=== PATIENT | female | born 1970 | race Caucasian/White ===

== ENCOUNTER 2025-05-15 12:15 | Outpatient (AMB) | payer OTHER, SELFPAY ==
--- NOTE | 2025-05-15 12:32 | MHC.OFFVIS ---
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 Her feet and toes are constantly numb, tingly, and painful, especially at night. Pain is burning and tingling type, at times shooting type. 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 Despite taking Lyrica, she was still having same discomfort in her feet day and night. Also her right hand has started to bother her more. It was getting numb and achy. [facility] Medical History (Updated 05/15/25 @ 12:38 by Norma Rob MD) GERD (gastroesophageal reflux disease) HTN (hypertension) Carpal tunnel syndrome Carpal tunnel syndrome, bilateral upper limbs Restless leg syndrome Carpal tunnel syndrome of right wrist Small fiber neuropathy Peripheral neuropathy Review of Systems Const Details: Constitutional:?No fever, chills, fatigue, weight loss, or night sweats. HEENT:?No headache, vision changes, hearing loss, nasal congestion, sore throat. Neurological:? Complain of numbness Psychiatric:?No anxiety, depression, mood swings, sleep disturbance, or hallucinations. Endocrine:?No heat/cold intolerance, polydipsia, polyuria, or hair/skin changes. Hematologic/Lymphatic:?No easy bruising, bleeding, or lymphadenopathy. Integumentary (Skin):?No rash, lesions, itching, or color changes. ? Physical Exam Neuro Other: Mental Status: Alert and oriented to person, place, and time. Normal attention. Normal spontaneous speech, fluency, and comprehension. No obvious issues with mood and memory. Affect is appropriate. Cranial Nerves: CN II: Visual luciano full to confrontation, visual acuity intact. CN III, IV, : Pupils equal, round, reactive to light and accommodation. Extraocular movements are normal. CN V: Facial sensation is normal. CN VII: Facial movements symmetrical. CN VIII: Hearing intact to bedside conversation is normal. CN IX, X: Palate elevates symmetrically. CN XI: Shoulder shrug and head turn symmetrical. CN XII: Tongue midline without atrophy or fasciculations. Extrapyramidal: Full facial expressions and blinking. No rigidity. Movements are appropriate with no tremor or abnormality. Speech: Normal; no dysarthria or tremor. Assessment & Plan Assessment & Plan (1) Peripheral neuropathy: Comment: Meds tried: Gabapentin, amitriptyline, duloxetine, lyrica. 09/01/24 NCV/EMG UE Mild right median neuropathy across the Carpal tunnel. 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 08/10/23. Code(s): G62.9 - Polyneuropathy, unspecified Category: Medical Qualifiers: Peripheral neuropathy type: idiopathic neuropathy, unspecified Qualified Code(s): G60.9 - Hereditary and idiopathic neuropathy, unspecified (2) Carpal tunnel syndrome: Code(s): G56.00 - Carpal tunnel syndrome, unspecified upper limb Category: Medical Qualifiers: Laterality: right Qualified Code(s): G56.01 - Carpal tunnel syndrome, right upper limb Plan Impression: 1. Idiopathic painful peripheral neuropathy 2. Carpal tunnel syndrome previously better with cortisone injection Recommendations: 1. Discontinue Lyrica as it is not helping 2. Start tizanidine 4 mg twice a day 3. Referral to orthopedic for surgical decompression of carpal tunnel syndrome Orders: Referrals Orthopedics Referral G56.01 - Carpal tunnel syndrome, right upper limb Medications: New tizanidine 4 mg PO BID PRN 180 caps 0RF muscle spasticity Coding Level of Care Code Tele Est Pt Level 4 (12923) Diagnoses Idiopathic peripheral neuropathy G60.9 Peripheral neuropathy type: idiopathic neuropathy, unspecified Carpal tunnel syndrome of right wrist G56.01 Laterality: right
--- OUTSIDE RECORDS SUMMARY | 2025-05-15 13:15 | XMS_ITS | Clinical Summary ---
Author Organization [facility] Address [address] [address] Phone Care Team Providers Care Fur Cutting Machine Operator Name Role Phone waylon Thelma JESICA Primary Care Provider [phone] Allergies Active Allergy Reactions Criticality Noted Date Comments Acetazolamide 07/03/2021 Naproxen Other (see comments) 07/03/2021 Sulfa Antibiotics Other (see comments) 07/03/20 21 Medications albuterol HFA (PROVENTIL HFA;VENTOLIN HFA) 108 (90 Base) MCG/ACT inhaler Inhale 1 puff if needed Active Calcipotriene 0.005 % ointment APPLY 1 SQUIRT TOPICALLY ONCE. APPLY TOPICALLY ONCE DAILY NEEDED 9 Active fluticasone (FLONASE) 50 MCG/ACT nasal spray SPRAY TWICE INTO EACH NOSTRIL DAILY EVERY MORNING. 1 Active hydrOXYzine (ATARAX) 25 MG tablet Take 1 tablet by mouth at night if needed Active hyoscyamine (LEVBID) 0.375 MG 12 hr tablet Take 375 mcg by mouth if needed 1 Active omeprazole (PriLOSEC) [address] capsule Take 1 capsule by mouth 1 (one) time each day 1 Active triamcinolone (KENALOG) 0.1 % ointment Apply 1 application topically if needed Active ciclopirox (PENLAC) 8 % solution if needed 1 Active hydroCHLOROthia zide 12.5 MG tablet TAKE 1 TABLET BY MOUTH EVERY DAY 90 tablet 4 3 Active gabapentin (NEURONTIN) 300 MG capsule Take 1 capsule by mouth 3 (three) times a day if needed Patient can take up to 3-4 times per day if needed 3 Active amLODIPine (NORVASC) 10 MG tablet Take 1 tablet (10 mg total) by mouth 1 (one) time each day 90 tablet 5 4 Active DULoxetine (CYMBALTA) [address] capsule Take 30 mg by mouth 1 (one) time each day 4 Active pregabalin (LYRICA) 75 MG capsule Take 75 mg by mouth 1 (one) time each day Every day for 30 days 4 Active pravastatin (PRAVACHOL) 40 MG tablet Take 40 mg by mouth 1 (one) time each day 4 Active metoprolol succinate XL (TOPROL-XL) 100 MG 24 hr tablet TAKE 1 TABLET BY MOUTH EVERY DAY 90 tablet 4 5 Active benazepril (LOTENSIN) 20 MG tablet TAKE 1 TABLET (20 MG TOTAL) BY MOUTH IN THE MORNING AND IN THE EVENING 180 tablet 3 5 Active Active Problems Problem Noted Date Diagnosed Date Essential hypertension 07/03/2021 Localized edema 07/03/2021 Overweight 07/03/2021 Elevated fasting glucose 07/03/2021 Liver function tests outside reference range 11/2020 Vitamin D deficiency 07/03/2021 Dyslipidemia 08/31/2017 Resolved Problems Problem Noted Date Diagnosed Date Resolved Date Allergic rhinitis 07/03/2021 08/05/2021 Emphysema 07/03/2021 08/05/2021 Hyperglycemia 07/03/2021 08/05/2021 Encounters Date Type Department Care Team Description 02/20/2025 Refill [facility] [address] [place] [address] Meir Slaughter MD from Last 3 Months Immunizations Immunization Administration Dates Next Due Influenza TIV (IM) 08/13/2016 Pneumococcal Polysaccharide 08/13/2016, 1 Tdap 06/30/2013 Family History Medical History Relation Comments Cancer Father Heart disease Father Hypertension Father Diabetes Mother Hypertension Mother Relation Status Comments Father Mother Social History Tobacco Use Types Packs/Day Years Used Date Smoking Tobacco: Every Day Cigarettes Smokeless Tobacco: Never Alcohol Use Standard Drinks/Week Comments Yes 0 (1 standard drink = 0.6 oz pure alcohol) Alcoholic Drinks/day: 1-2 drinks per day Comments Unknown Sex and Gender Information Value Date Recorded Sex Assigned at Not on file Legal Sex Female 4:52 PM EST Gender Identity Not on file Sexual Orientation Not on file Last Filed Vital Signs Vital Sign Reading Time Taken Comments Blood Pressure 137/72 10/06/2024 9:22 AM EST Pulse 76 10/06/2024 9:22 AM EST Temperature - - Respiratory Rate - - Oxygen Saturation 95% 10/06/2024 9:22 AM EST Inhaled Oxygen Concentration - - Weight 81.1 kg (178 lb 12.8 oz) 10/06/2024 9:22 AM EST Height 167.6 cm (5' 6 ) 10/06/2024 9:22 AM EST Body Mass Index 28.86 10/06/2024 9:22 AM EST Plan of Treatment Upcoming Encounters Date Type Department Care Team (Late st Contact Info) Description 10/05/2025 9:00 AM EST Office Visit [facility] [address] [phone] Meir Slaughter MD [address] [address] Health Maintenance Due Date Last Done Comments Breast Cancer Screening 1971 Hepatitis B Vaccine (1 of 3 - 19+ 3-dose series) 1990 Pneumococcal Vaccine: 50+ Ye ars (3 of 3 - PCV) 08/13/2017 08/13/2016, 07/18/2011 Colorectal Cancer Screening: Annual FOBT 2020 Colorectal Cancer Screening: Colonoscopy 2020 Colorectal Cancer Screening: Sigmoidoscopy 2020 Influenza Vaccine (#1) 2025 4, 09/23/2022, 08/15/2021, Additional history exists Pneumococcal Vaccine: Peds ( 0 to 5 Years) and At-Risk Patients (6 to 49 Years) Discontinued 08/13/2016, 07/18/2011 Insurance [facility] Medicaid [facility] Medicaid Care Teams Fur Cutting Machine Operator Relationship Specialty Start Date End Date Thelma Wagner NP [address] [place] [id number] PCP - General Nurse Practitioner 08/07/21
--- OUTSIDE RECORDS SUMMARY | 2025-05-15 13:15 | XMS_ITS | Clinical Summary ---
Author Organization [facility] Address [address] [place] [address] Care Team Providers Care Estate Conservator Name Role Phone Aury Gardner DMD Primary Care Provider [phone] Source Comments PLEASE NOTE, if this patient is a minor, it may be UNLAWFUL to discuss sensitive information that is contained in these records (such as FAMILY PLANNING, MENTAL HEALTH or SUBSTANCE ABUSE) with the minor patient's parent or other person without the patient's specific authorization.[facility] Allergies Active Allergy Reactions Criticality Noted Date Comments Sulfur 05/23/2022 Medications ibuprofen 600 mg tabletIndicatio ns:Tooth infection Take 1 Tablet by mouth 3 (three) times daily as needed for pain 28 Tablet 05/24/2022 Active acetaminophen (TYLENOL) 500 mg capsuleIndicati ons:Toothache Take 1 Capsule by mouth 3 (three) times daily 28 Capsule 05/24/2022 Active Social History Tobacco Use Types Packs/Day Years Used Date Smoking Tobacco: Never Assessed Social Connections Answer Date Recorded Connectedness 0 07/22/2024 Financial Resource Strain Answer Date R ecorded Financial Resource Strain 0 2021 Stress Answer Date Recorded Stress 0 05/16/2022 Physical Activity Answer Date Recorded Physical Activity 0 05/16/2022 Food Insecurity Answer Date Recorded Food 0 07/28/2024 Transportation Needs Answer Date Record ed Transportation 0 05/16/2022 Housing Stability Answer Date Recorded Housing 0 05/16/2022 Safety and Environment Answer Date Doni rded Safety 0 05/16/2022 Utilities Answer Date Recorded Utilities 0 05/16/2022 Employment Answer Date Recorded Stress 0 07/22/2024 Comments Unknown Sex and Gender Information Value Date Recorded Sex Assigned at Not on file Legal Sex Female 12:38 PM PST Gender Identity Not on file Sexual Orientation Not on file Last Filed Vital Signs Vital Sign Reading Time Taken Comments Blood Pressure 141/95 05/23/2022 2:27 PM EDT Pulse 92 05/23/2022 2:27 PM EDT Temperature - - Respiratory Rate - - Oxygen Saturation - - Inhaled Oxygen Concentration - - Weight - - Height - - Body Mass Index - - Plan of Treatment Health Maintenance Due Date Last Done Comments Anxiety Screening 1971 HPV Screening 1971 Hepatitis C Screening 1971 Pap + HPV 1971 Tobacco Screening 1971 HIV Screening 1986 Imm-Hepatitis B (1 of 3 - 19 + 3-dose series) 1990 Cervical Cancer Screening 1992 Pap Smear 1992 Breast Cancer Screening (Mammogram) 2011 CT Colonography 2016 Colonoscopy 2016 Colorectal Cancer Screening 2016 FIT/gFOBT 2016 Fecal DNA 2016 Flexible Sigmoidoscopy 2016 Imm-Pneumococcal 50+ (2 of 2 - PCV) 2021 08/13/2016, 07/18/2011 Imm-Zoster, Recombinant (1 of 2) 2021 Hypertension Screening (#1) 05/23/2023 Imm-DTaP/Tdap/Td (2 - Td or Tdap) 06/30/2023 013 [id number] (1 - season) 2024 Alcohol and Drug Screen 11/02/2024 Depression Annual Screen 11/02/2024 Imm-Influenza (#1) 2025 08/15/2021, 08/13/2016 Diabetes Screening 10/04/2027 10/04/2024, 1 12/05/2023, 07/28/2023, Additional history exists Lipid Screening 10/04/2029 10/04/2024, 07/29/2022 Cervical Ablation/Cold-Knife Conization Discontinued Cervical Cryotherapy Discontinued Colposcopy Discontinued Endometrial Biopsy Discontinued Excision/Leep Discontinued HPV Genotyping Discontinued Vaginal Pap Discontinued Vulvoscopy Discontinued Insurance [place] Member Subscriber Plan / Payer (Ef fective 2017-Present) Name:Zahraa Agrawal Relation to Subscriber:Self Name:ZAHRAA AGRAWAL Payer ID:[id number] Group ID:Not on file Type:Medicaid Address: [address] [place] [address] [facility] Member Subscriber Plan / Payer ( fective 2017-Present) Name:Zahraa Agrawal Relation to Subscriber:Self Name:Zahraa Agrawal Payer ID:[id number] Group ID:Not on file Type:Medicaid Address: [address] [place] [facility] Care Teams Estate Conservator Relationship Specialty Start Date End Date Aury Gardner DMD [address] [place] [address] PCP - General 07/14/19
== END 2025-05-15 12:46 | disposition home or self-care (01) ==
LOC: HO.HSM 12:16
PROVIDERS: PCP Internal Medicine; Visit Provider Psychiatry & Neurology Neurology
DX: G60.9 Hereditary and idiopathic neuropathy, unspecified (principal); G56.01 Carpal tunnel syndrome, right upper limb
CPT/HCPCS: 99214

== ENCOUNTER 2025-07-11 14:17 | Outpatient (AMB) | payer OTHER, SELFPAY ==
--- NOTE | 2025-07-11 14:33 | MHC.OFFVIS ---
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 Her feet and toes are constantly numb, tingly, and painful, especially at night. Pain is burning and tingling type, at times shooting type. 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 She stopped taking pregabalin and that made her worse. She tried half of tizanidine once or twice a day in it was not helping as much. She was complaining of severe burning aching type of pain in both feet but especially in right foot. It was especially worse at night. [facility] Medical History (Updated 05/15/25 @ 12:38 by Norma Rob MD) GERD (gastroesophageal reflux disease) HTN (hypertension) Carpal tunnel syndrome Carpal tunnel syndrome, bilateral upper limbs Restless leg syndrome Carpal tunnel syndrome of right wrist Small fiber neuropathy Peripheral neuropathy Review of Systems Const Details: Anxious and depressed because of pain Physical Exam Neuro Other: She is alert and awake with normal spontaneity of speech fluency comprehension and anxious and stressed affect. Balance gait and coordination are normal. Assessment & Plan Assessment & Plan (1) Peripheral neuropathy: Comment: Meds tried: Gabapentin, amitriptyline, duloxetine, lyrica. 09/01/24 NCV/EMG UE Mild right median neuropathy across the Carpal tunnel. 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 08/10/23. Code(s): G62.9 - Polyneuropathy, unspecified Category: Medical Qualifiers: Peripheral neuropathy type: idiopathic neuropathy, unspecified Qualified Code(s): G60.9 - Hereditary and idiopathic neuropathy, unspecified Plan Impression: Painful peripheral neuropathy Rec: Tizanidine 4mg, 1/2 bid as needed Pregabilin 150mg bid Medications: Changed From pregabalin 150 mg PO BEDTIME 90 caps 0RF To pregabalin 150 mg PO BID 180 caps 0RF Coding Level of Care Code Est Pt Level 4 (14642) Diagnoses Idiopathic peripheral neuropathy G60.9 Peripheral neuropathy type: idiopathic neuropathy, unspecified
--- OUTSIDE RECORDS SUMMARY | 2025-07-11 16:53 | XMS_ITS | Clinical Summary ---
Author Organization [facility] Address [address] [address] Phone Care Team Providers Care Bankman Name Role Phone waylon Thelma JESICA Primary Care Provider [phone] Allergies Active Allergy Reactions Criticality Noted Date [...] times per day if needed 3 Active DULoxetine (CYMBALTA) [address] capsule [...] THE EVENING 180 tablet 3 5 Active amLODIPine (NORVASC) 10 MG tablet TAKE 1 TABLET BY MOUTH 1 TIME EACH DAY. 90 tablet 5 5 Active Active Problems Problem Noted Date Diagnosed Date Essential hypertension 07/03/2021 Localized edema 07/03/2021 Overweight 07/03/2021 Elevated fasting glucose 07/03/2021 Liver function tests outside reference range 11/2020 Vitamin D deficiency 07/03/2021 Dyslipidemia 08/31/2017 Resolved Problems Problem Noted Date Diagnosed Date Resolved Date Allergic rhinitis 07/03/2021 08/05/2021 Emphysema 07/03/2021 08/05/2021 Hyperglycemia 07/03/2021 08/05/2021 Encounters Date Type Department Care Team Description 06/05/2025 Refill [facility] [address] [place] [address] Meir Slaughter MD from Last 3 Months [...] Office Visit [facility] [address] [phone] Meir Slaughter MD [address] [address] Health Maintenance Due Date Last Done Comments [...] Discontinued 08/13/2016, 07/18/2011 Insurance [facility] Medicaid [facility] Medicaid Care Teams Bankman Relationship Specialty Start Date End Date Thelma Wagner NP [address] [place] [id number] PCP - General Nurse Practitioner 08/07/21
== END 2025-07-11 14:45 | disposition home or self-care (01) ==
LOC: HO.HSM 14:17
PROVIDERS: Visit Provider Psychiatry & Neurology Neurology
DX: G60.9 Hereditary and idiopathic neuropathy, unspecified (principal)
CPT/HCPCS: 99214

== ENCOUNTER 2025-10-23 10:04 | Outpatient (AMB) | payer OTHER, SELFPAY ==
--- NOTE | 2025-10-23 10:22 | A.OFFVIS_ITS ---
Vital Signs 10/23/25 10:26 Height 5 ft 5 in Weight 190 lb BMI 31.6 BP 118/72 Blood Pressure Location Lt brachial Position Sitting Respiration 16 Pulse 96 Pulse Source Pulse Oximeter Pulse Oximetry (%) 95 Oxygen Delivery Method Room Air Intake Visit Reasons: 3m Utility Systems Repairer Operator Required: No Allergies Sulfa (Sulfonamide Antibiotics) Allergy (Unknown, Verified 10/23/25 10:27) Unknown HPI Comments Details: Zahraa is a 55-year-old female patient with a past medical history hypertension restless leg,, and small neuropathy as well as a peripheral neuropathy. She last saw Dr. Rob on 07/11/2025 at which time he increase the frequency of her Lyrica and provided her with tizanidine as needed. She has had chronic bilateral foot pain and numbness for over 2 years. She has prickling and painful paresthesias on both sides as well as some sensory loss. Her sensory losses particularly to the distal ends of toes and she has a shooting pain to her toe on both sides but worse on the right. EMG studies have shown significant for a distal tibial neuropathy in her feet. He tells me today that since starting on the Lyrica 150 mg twice daily dosing, she has seen an improvement in her discomfort throughout the day. She has been using tizanidine at bedtime and typically such the tablet in half to make a 2 mg dose. This has helped some. She has been wearing compression socks but at the level of the ankle. She has never tried knee-high socks before. Other therapies tried: Gabapentin Amitriptyline Duloxetine [facility] Medical History (Updated 05/15/25 @ 12:38 by Norma Rob MD) GERD (gastroesophageal reflux disease) HTN (hypertension) Carpal tunnel syndrome Carpal tunnel syndrome, bilateral upper limbs Restless leg syndrome Carpal tunnel syndrome of right wrist Small fiber neuropathy Peripheral neuropathy Review of Systems Const All systems reviewed & are unremarkable except as noted in HPI and below Physical Exam Vital Signs: Last Vital Signs Pulse 96 10/23/25 10:26 Resp 16 10/23/25 10:26 BP 118/72 10/23/25 10:26 Pulse Ox 95 10/23/25 10:26 Oxygen Delivery Method Room Air 10/23/25 10:26 BMI result Body Mass Index 31.6 Const General: cooperative, healthy appearing, comfortable and no acute distress Nutritional Appearance: well nourished Orientation/consciousness: patient oriented x3 Limitations: no limitations HEENT Head: Yes normal to inspection and Yes normocephalic Eyes General: appearance normal, both eyes and all related structures Visual Luciano: normal visual luciano by confrontation Alignment and Position: alignment normal Periorbital: periorbital findings normal Eyelids: Yes eyelids normal Conjunctivae: conjunctivae normal Sclerae: sclerae normal Direct Ophthalmoscopy: normal light reflex Neuro General: patient oriented x3 Cranial nerves: Yes CN's II-XII intact bilaterally and Yes Facial sensation intact/muscles of mastication intact Cognition (Neuro): normal cognition Gait exam (Neuro): Normal gait present Motor exam (neuro): 5/5 motor strength present throughout and no tremor noted Sensory Exam: Abnormal lower extremity sensory exam bilateral light-touch abnormal decreased and vibratory abnormal absent Deep tendon reflexes (DTR's): Right triceps reflex intensity grade: 2+, Left triceps reflex intensity grade: 2+, Rt Biceps (C5, C6): 2+, Left biceps reflex intensity grade: 2+, Right brachioradialis reflex intensity grade: 2+, Left brachioradialis reflex intensity grade: 2+, Right patellar reflex intensity grade: 2+, Left patellar reflex intensity grade: 2+, Right ankle reflex intensity grade: 0 and Left ankle reflex intensity grade: 0 Romberg Test: Negative Pupils: Normal pupillary reactivity/response: bilateral Psych Appearance: grossly normal Mental Status: mental status grossly normal Speech and movement: Normal speech and movement present and Clear speech present Affect: normal affect Attitude: cooperative Thought process: Normal thought process present Thought content: Normal thought content present Insight: Good insight present (Psych) Judgement: Good judgement present (Psych) Assessment & Plan Assessment & Plan (1) Peripheral neuropathy: Comment: Meds tried: Gabapentin, amitriptyline, duloxetine, lyrica. 09/01/24 NCV/EMG UE Mild right median neuropathy across the Carpal tunnel. 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 08/10/23. Code(s): G62.9 - Polyneuropathy, unspecified Category: Medical Qualifiers: Peripheral neuropathy type: idiopathic neuropathy, unspecified Qualified Code(s): G60.9 - Hereditary and idiopathic neuropathy, unspecified Plan Zahraa is a 55-year-old female patient with a past medical history hypertension restless leg,, and small neuropathy as well as a peripheral neuropathy. Lyrica 150 mg twice daily dosing has been so far the most beneficial. She is still however has a relative higher degree of discomfort especially during the day. I noticed on exam today, she has a 1+ pitting edema starting about the mid-juárez down on both legs. She is using compression socks but they stopped the level of the ankle causing edema right above this level. I am suggesting that she tried knee-high compression stockings in efforts to get any pressure off the area of the ankle including existing edema. We will continue Lyrica 100 mg twice daily and tizanidine as needed. -continue pregabalin 150 mg twice daily -continue tizanidine as needed -recommend trying knee-high compression stockings for edema and support Medications: Changed From pregabalin 150 mg PO BID 180 caps 0RF To pregabalin 150 mg PO BID 180 caps 3RF 90 days Coding Level of Care Code Est Pt Level 4 (49244) Diagnoses Idiopathic peripheral neuropathy G60.9 Peripheral neuropathy type: idiopathic neuropathy, unspecified
[2025-10-23 10:26] VITALS: BP 118/72; PULSE 96; RESP 16; O2SAT 95; BMI 31.6
--- OUTSIDE RECORDS SUMMARY | 2025-10-23 12:06 | XMS_ITS | Clinical Summary ---
Author Organization [facility] Address [address] [address] Phone Care Team Providers Care Packer Insulation Name Role Phone waylon Thelma JESICA Primary Care Provider [phone] Allergies Active Allergy Reactions Criticality Noted Date [...] Encounters Date Type Department Care Team Description 10/06/2025 Orders Only [facility] [address] [id number] Meir Slaughter MD Dyslipidemia; Essential hypertension; Localized edema; Liver function tests outside reference range; Overweight; Elevated fasting glucose from Last 3 Months Immunizations Immunization Administration [...] Care Team (Late st Contact Info) Description 11/27/2025 9:40 AM EST Office Visit [facility] [address] [phone] Meir Slaughter MD [address] [phone] Health Maintenance Due Date Last Done Comments [...] to 49 Years) Discontinued 08/13/2016, 07/18/2011 Insurance [facility] Medicaid [facility] Medicaid Care Teams Packer Insulation Relationship Specialty Start Date End Date Thelma Wagner NP [address] [place] [id number] PCP - General Nurse Practitioner 08/07/21
== END 2025-10-23 10:38 | disposition home or self-care (01) ==
LOC: HO.HSM 10:04
PROVIDERS: PCP Nurse Practitioner Gerontology; Visit Provider Nurse Practitioner
DX: G60.9 Hereditary and idiopathic neuropathy, unspecified (principal)
CPT/HCPCS: 99214

== ENCOUNTER → 2025-10-23 10:04 | Outpatient (BNVA) | payer OTHER, SELFPAY | PROVIDERS: PCP Nurse Practitioner Gerontology; Visit Provider Nurse Practitioner | DX: G60.9 Hereditary and idiopathic neuropathy, unspecified (principal); Z79.899 Other long term (current) drug therapy | CPT/HCPCS: 99212 ==